=== PATIENT | male | born 1975 | race Native Hawaiian/Other Pacific Islander ===

== ENCOUNTER 2019-02-27 12:17 | Emergency (ER) | payer OTHER ==
[~2019-02-27] VITALS: Ht 172.7 cm; Wt 99.8 kg
[2019-02-27 12:36] VITALS: TEMP 98.2
[2019-02-27 13:21] LABS: PLATELET COUNT 159 K/uL (142-355)
[2019-02-27 13:26] LABS: POTASSIUM 3.5 mmol/L (3.6-5.2); SODIUM 138 mmol/L (136-145)
[2019-02-27 14:34] VITALS: BP 146/94
== END 2019-02-27 14:49 | disposition home or self-care (01) ==
LOC: ED 12:17
PROVIDERS: Emergency Medicine
DX: R07.89 Other chest pain (principal); I10 Essential (primary) hypertension; G62.9 Polyneuropathy, unspecified; R00.1 Bradycardia, unspecified; R94.31 Abnormal electrocardiogram [ECG] [EKG]
CPT/HCPCS: 36415; 80053; 82550; 82553; 84484; 85027; 93005; 99283

== ENCOUNTER 2019-11-30 11:50 | Outpatient (CLI) | payer OTHER | END 2019-11-30 20:12 | disposition home or self-care (01) | LOC: LAB 11:50 | DX: U07.1 COVID-19 (principal); R05 Cough; R09.81 Nasal congestion; R52 Pain, unspecified | CPT/HCPCS: 87635; G2023; U0003 ==